=== PATIENT | male | born 1990 | race Caucasian/White ===

== ENCOUNTER 2017-12-09 22:11 | Emergency (ER) | payer SELFPAY ==
[~2017-12-09] VITALS: Ht 175.3 cm; Wt 122.5 kg
[2017-12-09 22:28] VITALS: BP 145/84
--- NOTE | 2017-12-09 22:30 | NUR ---
TO LOBBY, A/W BED, NORMA, VSJuvenal, ERMElina NOTED
--- NOTE | 2017-12-09 23:23 | NUR ---
PT AMBULATED TO ER BED 02
--- NOTE | 2017-12-09 23:33 | NUR ---
27/M CAME IN WITH FAMILY/FRIEND, C/O 02/24 [place], THROBBING HEADACHE STARTING FROM POSTERIOR HEAD, RADIATING TO R LATERAL HEAD, X1 MONTH. PT REPORTS INTERMITTNET DIZZINESS AND NAUSEA. PT DENIES TRAUMA OR INJURY, NO OBVIOUS ABNORMALITY NOTED. PT REPORTS BEING SEEN IN HOSPITAL BEFORE, BEEN TAKING IBUPROFEN AND ASPIRIN WITH NO RELIEF. HX HLD. NKA. PT DENIES FEVER, CP, SOB, COUGH, V/D; SKIN IS INTACT, PINK/WARM/DRY; AAOX4, PERRL, WITH EVEN AND STEADY GAIT; LUNGS CLEAR BL, BREATHING UNLABORED; PATIENT POSITIONED FOR COMFORT; HOB ELEVATED; BEDRAILS UP X2; BED DOWN.
--- NOTE | 2017-12-10 00:22 | NUR ---
Dr. Davis evaluating patient
[2017-12-10] MEDS ORDERED: AMOXICILLIN 500 MG CAP PO ONE (00:30)
[2017-12-10] MEDS ORDERED: SUMAtriptan 6 MG/0.5 ML VIAL SUBQ ONE (00:30)
[2017-12-10 01:30] VITALS: BP 119/70
--- NOTE | 2017-12-10 01:30 | NUR ---
Patient discharged with v/s stable. Written and verbal after care instructions given and explained. Patient alert, oriented and verbalized understanding of instructions. Ambulatory with steady gait. All questions addressed prior to discharge. ID band removed. Patient advised to follow up with PMD. Rx of IBUPROFEN, IMITREX, AMOXICILLIN given. Patient educated on indication of medication including possible reaction and side effects. Opportunity to ask questions provided and answered.
== END 2017-12-10 01:30 | disposition home or self-care (01) ==
LOC: MED 22:11
DX: H66.91 Otitis media, unspecified, right ear (principal); G43.909 Migraine, unspecified, not intractable, without status migrainosus; E78.5 Hyperlipidemia, unspecified
CPT/HCPCS: 96372; 99283; J3030